=== PATIENT | female | born 1955 | race Caucasian/White ===

== ENCOUNTER 2018-01-16 14:54 | Outpatient (CLI) | payer OTHER | END 2018-01-16 15:05 | disposition home or self-care (01) | LOC: MAMO-SONO 14:54 | DX: C50.012 Malignant neoplasm of nipple and areola, left female breast (principal) ==

== ENCOUNTER 2018-01-16 15:36 | Outpatient (CLI) | payer OTHER | END 2018-01-16 15:51 | disposition home or self-care (01) | LOC: RAD 15:36 | DX: C50.012 Malignant neoplasm of nipple and areola, left female breast (principal) ==

== ENCOUNTER 2019-07-16 09:28 | Outpatient (CLI) | payer OTHER | END 2019-07-16 13:49 | disposition home or self-care (01) | LOC: TOM 09:28 | DX: K44.9 Diaphragmatic hernia without obstruction or gangrene (principal); I85.00 Esophageal varices without bleeding; Z80.0 Family history of malignant neoplasm of digestive organs; K31.89 Other diseases of stomach and duodenum; K22.8 Other specified diseases of esophagus; K31.7 Polyp of stomach and duodenum; K63.5 Polyp of colon; K76.89 Other specified diseases of liver; K76.6 Portal hypertension ==

== ENCOUNTER 2019-07-18 14:13 | Outpatient (CLI) | payer OTHER | END 2019-07-18 14:19 | disposition home or self-care (01) | LOC: MAMO-SONO 14:13 | DX: E03.8 Other specified hypothyroidism (principal); N64.89 Other specified disorders of breast; K76.0 Fatty (change of) liver, not elsewhere classified; I10 Essential (primary) hypertension ==

== ENCOUNTER 2020-06-16 09:46 | Outpatient (CLI) | payer OTHER | END 2020-06-16 09:55 | disposition home or self-care (01) | LOC: TOM 09:46 | PROVIDERS: ATTEND Urology | DX: R31.0 Gross hematuria (principal) ==

== ENCOUNTER 2021-01-05 14:01 | Outpatient (CLI) | payer OTHER | END 2021-01-05 14:15 | disposition home or self-care (01) | LOC: MAMO-SONO 14:01 | DX: R92.1 Mammographic calcification found on diagnostic imaging of breast (principal); N64.89 Other specified disorders of breast ==

== ENCOUNTER 2021-10-26 09:31 | Outpatient (CLI) | payer OTHER | END 2021-10-27 14:54 | disposition home or self-care (01) | LOC: TOM 09:31 | PROVIDERS: ATTEND Urology | DX: R31.9 Hematuria, unspecified (principal) ==

== ENCOUNTER 2022-05-17 14:20 | Outpatient (CLI) | payer OTHER | END 2022-05-17 14:34 | disposition home or self-care (01) | LOC: MAMO-SONO 14:20 | DX: Z85.3 Personal history of malignant neoplasm of breast (principal) ==

== ENCOUNTER 2024-06-25 14:17 | Outpatient (CLI) | payer OTHER | END 2024-06-25 14:28 | disposition home or self-care (01) | LOC: RAD 14:17 | DX: S83.62XD Sprain of the superior tibiofibular joint and ligament, left knee, subsequent encounter (principal); X58.XXXD Exposure to other specified factors, subsequent encounter; S80.911A Unspecified superficial injury of right knee, initial encounter ==

== ENCOUNTER → 2024-10-27 | Outpatient (CLI) | payer OTHER | END | disposition home or self-care (01) | LOC: TOM 10:55 | DX: R31.9 Hematuria, unspecified (principal) ==

== ENCOUNTER 2024-10-29 14:10 | Outpatient (CLI) | payer OTHER | END 2024-10-29 14:18 | disposition home or self-care (01) | LOC: SONOGRAMA 14:10 | PROVIDERS: ATTEND Urology | DX: R31.0 Gross hematuria (principal) ==